=== PATIENT | female | born 1930 | race Caucasian/White ===

== ENCOUNTER → 2018-04-29 | Outpatient (CLI) | payer MEDICARE, OTHER ==
--- NOTE | 2018-04-29 15:37 | Diagnostic Imaging Report ---
PROCEDURE: X-RAY CHEST, TWO VIEWS COMPARISON: Patients [facility], DX, CHEST SINGLE, 04/01/2009, 10:51. INDICATIONS: CHEST AND BACK PAIN FOR 2 DAYS FINDINGS: LUNGS: No consolidations or edema. No mass. Vascular markings are normal. PLEURA: No effusions or pneumothorax. HEART \T\ MEDIASTINUM: The heart is enlarged. Aorta is ectatic. BONES \T\ SOFT TISSUES: Diffusely demineralized with degenerative changes of the midthoracic spine. There is mild height loss of several vertebral bodies without wedge-shaped deformity. No focal osseous lesions. Soft tissue is unremarkable. CONCLUSION: Cardiomegaly without vascular congestion. No acute pulmonary process. Degenerative changes of the midthoracic spine with mild height loss of several vertebral bodies. No wedge compression deformities. Dictated by: Crista Machuca M.D. on 04/29/2018 at 15:41 Electronically approved by: Crista Machuca M.D. on 04/29/2018 at 15:41
== END ==
LOC: RAD 13:52
PROVIDERS: ATTEND Internal Medicine Cardiovascular Disease
DX: R06.02 Shortness of breath (principal)
CPT/HCPCS: 71046